=== PATIENT | female | born 1965 | race African-American/Black ===

== ENCOUNTER → 2016-05-11 | Outpatient (CLI) | payer OTHER ==
[~2016-05-11] MED LIST: BAYETES; COZA25TA PO; CYAN1000P IM; CYCL1TAB29 PO; DIAZ10 PO; DIFL150T PO; GLIP10TA6 PO; GLIP5TAB8 PO; IBUP800T23 PO; LISI10TA3 PO; METF850T PO; METR-1 PO; METR500T10 PO; PERC5TAB12 PO; ROBA750T PO
[2016-05-11 10:52] LABS: ANION GAP 9 MEQ/L (5-15); AST (GOT) 22 U/L (15-37); BLOOD UREA NITROGEN 13 MG/DL (7-18); CHLORIDE 102 MEQ/L (98-107); GLOMERULAR FILTRATION RATE 59 ML/MIN (>89); GLUCOSE,FASTING 225 MG/DL (74-99); POTASSIUM 4.1 MEQ/L (3.5-5.1); SODIUM (NA) 136 MEQ/L (136-145)
[2016-05-11 11:03] LABS: ALKALINE PHOSPHATASE 137 U/L (45-117); ALT (GPT) 36 U/L (10-53); HDL CHOLESTEROL 73.2 MG/DL (40.0-60.0); LDL CHOLESTEROL 115 MG/DL (0-99); TOTAL BILIRUBIN ADULT 0.2 MG/DL (0.2-1.0)
[2016-05-11 11:15] LABS: HEMOGLOBIN A1a 0.8 %; HEMOGLOBIN Ao 77.2 %; HEMOGLOBIN P3 5.3 %
== END ==
LOC: CLAB 10:08
PROVIDERS: ATTEND Family Medicine
DX: E11.9 Type 2 diabetes mellitus without complications (principal); I10 Essential (primary) hypertension; E66.9 Obesity, unspecified
CPT/HCPCS: 36415; 80053; 80061; 83036; 84443

== ENCOUNTER 2017-04-19 10:17 | Emergency (ER) | payer OTHER ==
[~2017-04-19] VITALS: Ht 170.2 cm; Wt 90.0 kg
[~2017-04-19 10:17] MED LIST changes: -CYAN1000P IM; +CYCL10TA PO; -CYCL1TAB29 PO; -DIAZ10 PO; -DIFL150T PO; -GLIP5TAB8 PO; +IBUP1TAB7 PO; -IBUP800T23 PO; -LISI10TA3 PO; +LOVA20TA PO; +METF500T PO; -METF850T PO; -METR-1 PO; -METR500T10 PO; -PERC5TAB12 PO
[2017-04-19 10:18] VITALS: BP 133/83; PULSE 101; RESP 20; TEMP 98.9; O2SAT 97
[2017-04-19] MEDS ORDERED: GLIP10TA6 PO (11:10)
[2017-04-19] MEDS ORDERED: METF850T PO (11:10)
[2017-04-19] MEDS ORDERED: LISI10TA3 PO (11:10)
[2017-04-19] MEDS ORDERED: AMOX500C PO (11:45)
--- NOTE | 2017-04-19 11:46 | PD ---
HPI Chief Complaint: Cold / Flu Symptoms Time Seen by Provider: 11:21 Travel History International Travel<30 days: No Contact w/Intl Traveler<30days: No Traveled to known affect area: No History of Present Illness HPI 52-year-old female presents to the emergency Department with complaint of cough , sneezing, congestion, sore throat 6 days. Requesting a prescription for antibiotics. Also complaining of feeling dizzy because her blood sugar is elevated. Blood sugar in triage 295. Compliant with medications. Says her blood sugars usually run around 150. Reports vomiting with coughing only. Reports wheezing and "a little" short of breath. Denies chest pain. Denies ear pain. Reports body aches. Denies fevers. Has tried hot toddies and 2 days of amoxicillin of an old prescription for symptom management. Symptoms are mild in severity. No known aggravating or relieving factors. No known allergies. Primary care provider is Dr. Baker. History of diabetes type 2 and hypertension. Has no other medical complaints. No other modifying factors or associated signs and symptoms. PFSH Past Medical History Cardiovascular Problems: Yes (HTN) Diabetes: Yes Patient Takes Glucophage: Yes Diminished Hearing: No Hypertension: Yes ?: Not : 1 Para: 1 Past Surgical History Appendectomy: Yes Social History Alcohol Use: No Tobacco Use: No Substance Use: No Allergies-Medications (Allergen,Severity, Reaction): Coded Allergies: No Known Allergies (Verified Adverse Reaction, Unknown, 04/19/17) Reported Meds & Prescriptions Reported Meds & Active Scripts Active Amoxicillin 500 Mg Cap 500 Mg PO BID 7 Days Glipizide 10 Mg Tab 10 Mg PO BIDAC Take 30 minutes before a meal Reported Glipizide 10 Mg Tab 10 Mg PO DAILY Take 30 minutes before a meal Metformin (Metformin HCl) 850 Mg Tab 800 Mg PO BIDPC Lisinopril 10 Mg Tab 10 Mg PO DAILY Review of Systems Except as stated in HPI: all other systems reviewed are Neg Physical Exam Narrative GENERAL: Well-nourished, well-developed black female patient, in no acute distress; afebrile, nontoxic-appearing SKIN: Warm and dry. No rash. HEAD: Atraumatic. Normocephalic. EYES: Pupils equal and round. No scleral icterus. No injection or drainage. ENT: Mucosa pink and moist. No erythema or exudates. No uvular edema. No uvular , palatal, or tonsillar deviation. Airway patent. EARS: Bilateral pinnae and external canals appear within normal limits. Bilateral tympanic membranes without erythema, dullness or perforation. NECK: Trachea midline. No lymphadenopathy. CARDIOVASCULAR: Regular rate and rhythm. No murmur appreciated. RESPIRATORY: No accessory muscle use. Clear to auscultation. Breath sounds equal bilaterally. No retractions or tachypnea. GASTROINTESTINAL: Abdomen soft, non-tender, nondistended. Hepatic and splenic margins not palpable. Bowel sounds are active 4 quadrants. MUSCULOSKELETAL: No obvious deformities. No clubbing. No cyanosis. No edema. NEUROLOGICAL: Awake and alert. Oriented 3. No obvious cranial nerve deficits. Motor grossly within normal limits. Normal speech. Moves all extremities. 5/5 strength to all extremities. PSYCHIATRIC: Appropriate mood and affect; insight and judgment normal. Data Data Last Documented VS Vital Signs Date Time Temp Pulse Resp B/P (MAP) Pulse Ox O2 Delivery O2 Flow Rate FiO2 04/19/17 10:18 98.9 101 20 133/83 (100) 97 Room Air Orders Orders Ed Discharge Order (04/19/17 11:46) MDM Medical Decision Making Medical Screen Exam Complete: Yes Emergency Medical Condition: Yes Medical Record Reviewed: Yes Differential Diagnosis Upper respiratory infection, influenza, bronchitis Narrative Course 52-year-old female with cold/flu symptoms 6 days. Patient requesting antibiotics. I discussed viral illness and symptom management. Patient with silica prescription for Vioxx. I discussed the patient with Dr. Escobar and he agrees with my plan of care and discharge. Amoxicillin prescribed for home. Instructed patient to follow up with primary care provider. Patient verbalizes understanding and agreement with treatment plan. Patient is medically cleared and stable for discharge. Discussed reasons to return to the emergency department. Patient agrees with treatment plan. The patients vital signs are stable and the patient is stable for outpatient follow-up and treatment. Patient discharged home, stable and in no acute distress. Diagnosis Primary Impression: Upper respiratory infection Qualified Codes: J06.9 - Acute upper respiratory infection, unspecified Referrals: [facility] Primary [facility] Physician Patient Instructions: General Instructions, Influenza (ED), Upper Respiratory Infection (ED) Departure Forms: Tests/Procedures, Work Release Enter return to work date: Apr 21, 2017 Additional Instructions: Ibuprofen or Tylenol as directed and as needed to reduce fever; may alternate ibuprofen and Tylenol as needed every 3 hours to minimize fever [id number] cold/flu medications as directed and as needed for symptom management Get plenty of sleep/rest Drink plenty of fluids to prevent dehydration; such as Gatorade, Powerade, Pedialyte [place] diet to encourage nutrition such as crackers, fruit, applesauce, toast, soup etc. Use an air humidifier/turn off ceiling fans Follow-up with your primary care provider within 1 day Return immediately to the emergency department with worsening of symptoms Med/Other Pt SpecificInfo: Prescription(s) given Scripts Amoxicillin (Amoxicillin) 500 Mg Cap 500 MG PO BID for Infection for 7 Days, #14 CAP 0 Refills Prov: Francesca Donaldson 04/19/17 Disposition: 01 DISCHARGE HOME Condition: Stable Francesca Donaldson Apr 19, 2017 11:46
== END 2017-04-19 12:07 | disposition home or self-care (01) ==
LOC: NEPD 10:17
DX: J06.9 Acute upper respiratory infection, unspecified (principal); E11.9 Type 2 diabetes mellitus without complications; I10 Essential (primary) hypertension; Z79.84 Long term (current) use of oral hypoglycemic drugs
CPT/HCPCS: 99283

== ENCOUNTER 2017-05-28 13:41 | Emergency (ER) | payer OTHER ==
[~2017-05-28] VITALS: Ht 175.3 cm; Wt 98.0 kg
[~2017-05-28 13:41] MED LIST changes: +AMOX500C PO; -BAYETES; -COZA25TA PO; -CYCL10TA PO; -IBUP1TAB7 PO; +LISI10TA3 PO; -LOVA20TA PO; -METF500T PO; +METF850T PO; -ROBA750T PO
[2017-05-28 13:52] VITALS: BP 136/65; PULSE 98; RESP 18; TEMP 98.5; O2SAT 98
[2017-05-28] MEDS ORDERED: SODIUM CHLORIDE 0.9% FLUSH 10 ML FLUSH IVF PRN (14:15)
--- NOTE | 2017-05-28 14:22 | PD ---
HPI Chief Complaint: Medication Refill Request Time Seen by Provider: 14:02 Travel History International Travel<30 days: No Contact w/Intl Traveler<30days: No Traveled to known affect area: No History of Present Illness HPI Patient is a 52-year-old female presenting to the emergency department for evaluation of blood pressure and diabetes medications. She states she has been out for several weeks. She was followed at the primary care clinic by Dr. Baker, she has not followed up at the [facility] yet because she thought that they were going to charge her money. Patient reports that her symptoms have been ongoing for at least 1 week if not longer. Patient denies any chest pain, shortness of breath, fever, chills, nausea, vomiting, headache. Symptom onset was gradual, symptoms severity appears mild to moderate in nature. There are no alleviating symptoms. Symptoms are exacerbated because she is out of her medications. PFSH Past Medical History Diabetes: Yes Patient Takes Glucophage: Yes Hypertension: Yes : 1 Para: 1 Past Surgical History Appendectomy: Yes Social History Alcohol Use: No Tobacco Use: No Substance Use: No Allergies-Medications (Allergen,Severity, Reaction): Coded Allergies: No Known Allergies (Verified Adverse Reaction, Unknown, 05/28/17) Reported Meds & Prescriptions Reported Meds & Active Scripts Active Amoxicillin 500 Mg Cap 500 Mg PO BID 7 Days Glipizide 10 Mg Tab 10 Mg PO BIDAC Take 30 minutes before a meal Reported Glipizide 10 Mg Tab 10 Mg PO DAILY Take 30 minutes before a meal Metformin (Metformin HCl) 850 Mg Tab 800 Mg PO BIDPC Lisinopril 10 Mg Tab 10 Mg PO DAILY Review of Systems Except as stated in HPI: all other systems reviewed are Neg Eyes: Positive: Blurred Vision HENT: No: Headaches, Neck Pain Cardiovascular: No: Chest Pain or Discomfort Respiratory: No: Shortness of Breath Gastrointestinal: No: Nausea, Vomiting, Abdominal Pain Genitourinary: Positive: Frequency, No: Incontinence Musculoskeletal: No: Myalgias Physical Exam Narrative GENERAL: Well-developed, well-nourished, alert -[place] female. Presenting in no acute distress. SKIN: Warm and dry. HEAD: Atraumatic. Normocephalic. EYES: Pupils equal and round. No scleral icterus. No injection or drainage. Extraocular movements are intact. ENT: No nasal bleeding or discharge. Mucous membranes pink and moist. NECK: Trachea midline. No JVD. CARDIOVASCULAR: Regular rate and rhythm. RESPIRATORY: No accessory muscle use. Clear to auscultation. Breath sounds equal bilaterally. GASTROINTESTINAL: Abdomen soft, non-tender, nondistended. Hepatic and splenic margins not palpable. MUSCULOSKELETAL: Extremities without clubbing, cyanosis, or edema. No obvious deformities. NEUROLOGICAL: Awake and alert. No obvious cranial nerve deficits. Motor grossly within normal limits. Five out of 5 muscle strength in the arms and legs. Normal speech. PSYCHIATRIC: Appropriate mood and affect; insight and judgment normal. Data Data Last Documented VS Vital Signs Date Time Temp Pulse Resp B/P (MAP) Pulse Ox O2 Delivery O2 Flow Rate FiO2 05/28/17 15:12 16 98 Room Air 05/28/17 13:52 98.5 98 136/65 (88) Orders Orders Complete Blood Count With Diff (05/28/17 14:12) Comprehensive Metabolic Panel (05/28/17 14:12) Iv Access Insert/Monitor (05/28/17 14:12) Ecg Monitoring (05/28/17 14:12) Oximetry (05/28/17 14:12) Sodium Chloride 0.9% Flush (Ns Flush) (05/28/17 14:15) Blood Glucose (05/28/17 14:12) Urinalysis - C+S If Indicated (05/28/17 14:14) Insulin Human Regular Inj (Novolin R Inj (05/28/17 16:15) Blood Glucose (05/28/17 16:44) Labs Laboratory Tests Test 05/28/17 14:15 05/28/17 14:30 Urine Color LIGHT-YELLOW Urine Turbidity CLEAR Urine pH 5.0 Urine Specific [place] 1.038 Urine Protein NEG mg/dL Urine Glucose (UA) 1000 mg/dL Urine Ketones NEG mg/dL Urine Occult Blood NEG Urine Nitrite NEG Urine Bilirubin NEG Urine Urobilinogen LESS THAN 2.0 MG/DL Urine Leukocyte Esterase NEG Urine RBC LESS THAN 1 /hpf Urine WBC 1 /hpf Urine Squamous Epithelial Cells 1 /hpf Microscopic Urinalysis Comment CULT NOT INDICATED White Blood Count 7.9 TH/MM3 Red Blood Count 5.30 MIL/MM3 Hemoglobin 14.7 GM/DL Hematocrit 43.9 % Mean Corpuscular Volume 82.8 FL Mean Corpuscular Hemoglobin 27.7 PG Mean Corpuscular Hemoglobin Concent 33.5 % Red Cell Distribution Width 14.3 % Platelet Count 229 TH/MM3 Mean Platelet Volume 9.6 FL Neutrophils (%) (Auto) 48.3 % Lymphocytes (%) (Auto) 41.9 % Monocytes (%) (Auto) 6.7 % Eosinophils (%) (Auto) 2.3 % Basophils (%) (Auto) 0.8 % Neutrophils # (Auto) 3.8 TH/MM3 Lymphocytes # (Auto) 3.3 TH/MM3 Monocytes # (Auto) 0.5 TH/MM3 Eosinophils # (Auto) 0.2 TH/MM3 Basophils # (Auto) 0.1 TH/MM3 CBC Comment DIFF FINAL Differential Comment Blood Urea Nitrogen 13 MG/DL Creatinine 1.38 MG/DL Random Glucose 417 MG/DL Total Protein 7.6 GM/DL Albumin 3.5 GM/DL Calcium Level 8.9 MG/DL Alkaline Phosphatase 143 U/L Aspartate Amino Transf (AST/SGOT) 33 U/L Alanine Aminotransferase (ALT/SGPT) 31 U/L Total Bilirubin 0.2 MG/DL Sodium Level 133 MEQ/L Potassium Level 4.3 MEQ/L Chloride Level 103 MEQ/L Carbon Dioxide Level 22.6 MEQ/L Anion Gap 7 MEQ/L Estimat Glomerular Filtration Rate 49 ML/MIN MDM Medical Decision Making Medical Screen Exam Complete: Yes Emergency Medical Condition: Yes Interpretation(s) Vital Signs Date Time Temp Pulse Resp B/P (MAP) Pulse Ox O2 Delivery O2 Flow Rate FiO2 05/28/17 13:52 98.5 98 18 136/65 (88) 98 Differential Diagnosis Hyperglycemia versus metabolic abnormality versus UTI versus other Narrative Course Patient is well-appearing 52-year-old female presenting for evaluation of hyperglycemia secondary to being out of her medications. Patient's vital signs are stable. Basic labs ordered. CBC with no acute finding, chemistry with creatinine of 1.38, glucose 417, urinalysis with elevated glucose and elevated specific gravity. Urinalysis is not consistent with UTI. Patient was given 10 units of subcutaneous insulin. Will recheck sugar. Patient's medications will be refilled. She is encouraged to follow-up with primary care or at the [facility]. She is encouraged to avoid concentrated sweets. Patient was encouraged to return to emergency department for any new or worsening symptoms. She verbalized understanding of these instructions. Patient stable for discharge. Diagnosis Primary Impression: Diabetes Qualified Codes: E11.9 - Type 2 diabetes mellitus without complications Additional Impressions: Hypertension Qualified Codes: I10 - Essential (primary) hypertension Hyperglycemia Referrals: [facility] 1 week Patient Instructions: General Instructions, Type 2 Diabetes in Adults (ED) Additional Instructions: Follow-up at the [facility] clinic Take medications as directed Metformin should be taken with your 2 largest meals of the day Increase oral fluid intake Avoid concentrated sweets Return to emergency department for any new or worsening symptoms Med/Other Pt SpecificInfo: Prescription(s) given Scripts Glipizide (Glipizide) 10 Mg Tab 10 MG PO BIDAC for Blood Sugar Management, #60 TAB 3 Refills Take 30 minutes before a meal Prov: Christie Arriaga 05/28/17 Metformin (Metformin) 850 Mg Tab 850 MG PO BIDPC for Blood Sugar Management, #60 TAB 0 Refills Prov: Christie Arriaga 05/28/17 Lisinopril (Lisinopril) 10 Mg Tab 10 MG PO DAILY, #30 TAB 0 Refills Prov: Christie Arriaga 05/28/17 Disposition: 01 DISCHARGE HOME Condition: Stable Christie Arriaga May 28, 2017 14:22
--- NOTE | 2017-05-28 14:30 | PD ---
Physical Exam Date Seen by Provider: May 28, 2017 Narrative Patient is here for treatment of diabetes. She had been followed at the [facility] until it closed. She has been unable to find a new primary care provider since that time. She states that she had enough medicine to get her through until several weeks ago. However, she has now run out. She has subsequently developed polyuria, polydipsia, blurred vision. Data Data Last Documented VS Vital Signs Date Time Temp Pulse Resp B/P (MAP) Pulse Ox O2 Delivery O2 Flow Rate FiO2 05/28/17 13:52 98.5 98 18 136/65 (88) 98 Orders Orders Complete Blood Count With Diff (05/28/17 14:12) Comprehensive Metabolic Panel (05/28/17 14:12) Iv Access Insert/Monitor (05/28/17 14:12) Ecg Monitoring (05/28/17 14:12) Oximetry (05/28/17 14:12) Sodium Chloride 0.9% Flush (Ns Flush) (05/28/17 14:15) Blood Glucose (05/28/17 14:12) Urinalysis - C+S If Indicated (05/28/17 14:14) MDM Supervised Visit with KENIA: Yes Narrative Course I, Dr. Shelby, have reviewed the advance practice practitioner's documentation and am in agreement, met with the patient face to face, made the diagnosis, and the medical decision making was done by me. *My assessment and Findings: Patient is awake and alert and fully oriented. She does not smell like ketones. Please see Christie Haddad NP's note for results of laboratory and radiographic evaluation, ED course, final diagnosis and disposition Juana Shelby MD May 28, 2017 14:30
[2017-05-28 15:12] VITALS: RESP 16; O2SAT 98
[2017-05-28 15:12] LABS: AUTOMATED NEUTROPHIL # 3.8 TH/MM3 (1.8-7.7); BASOPHIL # 0.1 TH/MM3 (0-0.2); BASOPHIL % 0.8 % (0.0-2.0); EOSINOPHIL # 0.2 TH/MM3 (0-0.4); EOSINOPHIL % 2.3 % (0.0-4.0); HEMATOCRIT 43.9 % (35.0-46.0); HEMOGLOBIN 14.7 GM/DL (11.6-15.3); LYMPH % 41.9 % (9.0-44.0); LYMPHOCYTE # 3.3 TH/MM3 (1.0-4.8); MEAN CELL VOLUME 82.8 FL (80.0-100.0); MEAN CORPUSCULAR HEMOGLOBIN 27.7 PG (27.0-34.0); MEAN CORPUSCULAR HGB CONC 33.5 % (32.0-36.0); MEAN PLATELET VOLUME 9.6 FL (7.0-11.0); MONO % 6.7 % (0.0-8.0); MONOCYTE # 0.5 TH/MM3 (0-0.9); NEUT % 48.3 % (16.0-70.0); PLATELET COUNT 229 TH/MM3 (150-450); RED CELL DISTRIBUTION WIDTH 14.3 % (11.6-17.2); WHITE BLOOD COUNT 7.9 TH/MM3 (4.0-11.0)
[2017-05-28 15:49] LABS: BILIRUBIN, URINE NEG (NEG); BLOOD, URINE NEG (NEG); GLUCOSE,URINE 1000 mg/dL (NEG); KETONE, URINE NEG (NEG); NITRITE,URINE NEG (NEG); SQUAMOUS EPITHELIAL CELL URINE 1 /hpf (0-5); URINE COLOR LIGHT-YELLOW (YELLW/STRAW); URINE LEUKOCYTE ESTERASE NEG (NEG)
[2017-05-28 16:12] LABS: ALBUMIN 3.5 GM/DL (3.4-5.0); ALKALINE PHOSPHATASE 143 U/L (45-117); ALT (GPT) 31 U/L (10-53); AST (GOT) 33 U/L (15-37); BICARBONATE 22.6 MEQ/L (21.0-32.0); BLOOD UREA NITROGEN 13 MG/DL (7-18); CALCIUM 8.9 MG/DL (8.5-10.1); CHLORIDE 103 MEQ/L (98-107); CREATININE 1.38 MG/DL (0.50-1.00); GLOMERULAR FILTRATION RATE 49 ML/MIN (>89); GLUCOSE,RANDOM 417 MG/DL (74-106); SODIUM (NA) 133 MEQ/L (136-145); TOTAL BILIRUBIN ADULT 0.2 MG/DL (0.2-1.0); TOTAL PROTEIN 7.6 GM/DL (6.4-8.2)
[2017-05-28] MEDS ORDERED: INSULIN HUMAN REGULAR 1,000 UNITS/10 ML VIAL SQ ONE (16:15)
[2017-05-28] MEDS ORDERED: LISI10TA3 PO (16:49)
[2017-05-28] MEDS ORDERED: GLIP10TA6 PO ×2 (16:49→16:50)
[2017-05-28] MEDS ORDERED: METF850T PO (16:49)
== END 2017-05-28 16:58 | disposition home or self-care (01) ==
LOC: NEPC 13:41
DX: E11.65 Type 2 diabetes mellitus with hyperglycemia (principal); I10 Essential (primary) hypertension; Z79.84 Long term (current) use of oral hypoglycemic drugs
CPT/HCPCS: 80053; 81001; 85025; 96372; 99283; J1815